=== PATIENT | female | born 1960 | race Caucasian/White ===

== ENCOUNTER → 2016-11-15 | Outpatient (CLI) | payer BC ==
[~2016-11-15] MED LIST: CARAFATE1 GM PO; CHLORDIAZEPOXI1 EACH PO; DILAUDID2 MG PO; JENTADUETO 2.51 EAC2 PO; LISINOPRIL10 MG PO; LORTAB 5-325 M1 EACH PO; MOTRIN600 MG PO; NORCO 5/3251 TABLET PO; PROTONIX40 MG PO; VALSARTAN80 MG PO; VITAMIN D PO
== END | disposition home or self-care (01) ==
LOC: NUC 06:49
DX: K21.9 Gastro-esophageal reflux disease without esophagitis (principal); R14.0 Abdominal distension (gaseous); R11.0 Nausea
CPT/HCPCS: 78264; A9541